=== PATIENT | male | born 1975 | race Caucasian/White ===

== ENCOUNTER 2018-06-18 14:00 | Emergency (ER) | payer BC, MEDICAID ==
[2018-06-18] MEDS ORDERED: IOHEXOL 300mgI/mL 100 ML VIAL IVP ONE (14:19)
[2018-06-18 14:30] LABS: % BASOPHILS 0.2 % (0.0-2.0); % EOSINOPHILS 1.6 % (0.0-5.0); % LYMPHOCYTES 31.1 % (20.0-50.0); % MONOCYTES 5.1 % (2.0-10.0); EOSINOPHILE ABSOLUTE 0.1 Th/cmm (0.1-0.4); HEMOGLOBIN 14.6 gm/dL (12-16); LYMPHOCYTE ABSOLUTE 2.8 Th/cmm (1.5-3.0); MEAN CORPUSCULAR HGB CONC 34.1 pg (28.0-36.0); MEAN PLATELET VOLUME 7.8 fl; MONOCYTE ABSOLUTE 0.5 Th/cmm (0.3-1.0); NEUTROPHILE ABSOLUTE 5.5 Th/cmm (1.8-8.0); PLATELET COUNT 242 Th/cmm (150-400); RED BLOOD COUNT 4.88 Mil/cmm (4.30-5.70); WHITE BLOOD COUNT 8.9 Th/cmm (4.8-10.8)
--- NOTE | 2018-06-18 14:45 | ED Physician Chart ---
ED Chief Complaint/HPI - Patient Information Date Seen:: 06/18/18 Time Seen:: 14:10 Chief Complaint:: dizziness History of Present Illness:: 42 yr old male with 2 yr hx of off and on dizziness getting worse and progressive states today at home felt lt facial numbness hot feeling and was dizzy that he had to hold on to something they went to [facility] and [facility] bp taken 158/ 90 pt denies arm or leg or facial weakness no slurred speech no trouble swallowing .pt denies any medical problems Allergies:: Allergies Allergy/AdvReac Type Severity Reaction Status Date / Time No Known Allergies Allergy Verified 04/19/16 19:42 Vitals:: Vital Signs - 8 hr 06/18/18 14:11 Temp 98.0 F HR 72 RR 16 BP 150/62 O2 Sat % 98 ED Review of Systems - Review of Systems General/Constitutional: No fever Skin: No skin lesions Head: No headache Eyes: No loss of vision ENT: No earache Neck: No neck pain Cardio Vascular: No chest pain Pulmonary: No SOB GI: No nausea, No vomiting Musculoskeletal: No bone or joint pain Endocrine: No polyuria Psychiatric: No depression Hematopoietic: No bruising Allergic/Immuno: No urticaria Neurological: Dizziness ED Past Medical History - Past Medical History Past Medical History: No significant medical hx Family Medical History - Family Member Mother History Unknown: Yes Hx Family Coronary Artery Disease: Yes Hx Family Hypertension: Yes Other Medical History: family hx of diabetes ED Physical Exam - Physical Examination General/Constitutional: Well-developed, well-nourished, Alert, No distress Head: Atraumatic Eyes: Lids, conjuctiva normal Skin: Nl inspection ENMT: External ears, nose nl Neck: Nontender Respiratory: Nl effort/Exclusion Cardio Vascular: RRR GI: No tenderness/rebounding/guarding : No CVA tenderness Extremities: No tenderness or effusion, Full ROM Neuro/Psych: Alert/oriented Misc: Normal back ED Assessment - Assessment General Assessment: dizziness unclear etiology neg w/u in past with nl ct head neck ED Septic Shock - . Is Septic Shock (SBP<90, OR Lactate>4 mmol\L) present?: No - <6hrs of presentation: Vital Signs: Vital Signs - 8 hr 06/18/18 14:11 Temp 98.0 F HR 72 RR 16 BP 150/62 O2 Sat % 98 ED Reassessment (Disposition) - Reassessment Reassessment Condition:: Unchanged - Diagnosis Diagnosis:: dizziness unclear etiology - Patient Disposition Discharge/Transfer:: Home Condition at Disposition:: Stable
[2018-06-18 14:48] LABS: ALB/GLOB RATIO 1.4 (1.0-1.8); ALBUMIN 3.9 gm/dL (4.2-5.5); ALKALINE PHOSPHATASE 52 U/L (34-104); ANION GAP 10.1 (7.0-16.0); BILIRUBIN,TOTAL 0.5 mg/dL (0.3-1.0); BUN - UREA NITROGEN 14 mg/dL (7-25); CALCIUM SERUM 8.8 mg/dL (8.6-10.3); CARBON DIOXIDE 25.6 mEq/L (21.0-31.0); CHLORIDE 103 mEq/L (98-107); CREATININE - SERUM 0.9 mg/dL (0.7-1.3); GFR AFRICAN-AMERICAN > 60.0 ml/min (>90); GFR NON AFRICAN-AMERICAN > 60.0 ml/min; GLUCOSE 146 mg/dL (70-105); POTASSIUM SERUM 3.7 mEq/L (3.5-5.1); SGOT 18 U/L (13-39); SGPT/ALT 34 U/L (7-52); SODIUM SERUM 135 mEq/L (136-145); TOTAL PROTEIN,SERUM 6.6 gm/dL (6.0-8.3)
[2018-06-18] MEDS ORDERED: Sodium Chloride 0.9% 1,000 ML IV ONE (14:58)
[2018-06-18 17:25] LABS: URINE SOURCE CLEAN C
[2018-06-18 17:27] LABS: URINE BILIRUBIN NEGATIVE (NEGATIVE); URINE BLOOD NEGATIVE (NEGATIVE); URINE GLUCOSE (UA) NEGATIVE (NEGATIVE); URINE KETONE NEGATIVE (NEGATIVE); URINE LEUKOCYTE ESTERASE NEGATIVE (NEGATIVE); URINE NITRATE NEGATIVE (NEGATIVE); URINE PROTEIN NEGATIVE (NEGATIVE)
[2018-06-18 17:36] LABS: URINE CLARITY CLEAR (CLEAR); URINE COLOR YELLOW
[2018-06-18 17:40] LABS: URINE MICROSCOPIC INDICATED? YES
[2018-06-18 17:41] LABS: URINE BACTERIA OCCASIONAL /hpf (NONE SEEN); URINE EPITHELIAL CELLS MODERATE /lpf (FEW); URINE RBC 0-2 /hpf (0-5); URINE WBC 0-2 /hpf (0-5)
--- NOTE | 2018-06-19 07:30 | Diagnostic Imaging Report ---
Carotid ultrasound HISTORY: Dizziness COMPARISON: CT soft tissue neck the same day Technique: Longitudinal and transverse sonographic sector images of the carotid arteries were obtained with doppler analysis. FINDINGS: Exam of the right side demonstrates mild generalized atherosclerotic vascular disease. There is increased velocity on the right proximal ICA at 160 cm/second. There is also mild increased velocity right distal ICA 126 cm/second. Exam the left side demonstrates intimal thickening and mild atherosclerotic vascular disease. There is increased velocity of the left common carotid artery at 188 cm/second. Antegrade vertebral artery flow is demonstrated bilaterally. The velocity ratios are within normal limits. IMPRESSION: Mild bilateral atherosclerotic vascular disease. Increased velocities of the bilateral common carotid arteries are noted likely related to technical factors as no significant atherosclerosis is visualized on recent CT soft tissue neck exam. Otherwise no evidence of hemodynamically significant stenosis.
--- NOTE | 2018-06-19 07:58 | Diagnostic Imaging Report ---
CT scan of the brain without contrast History: Dizziness, vertigo Total DLP equals 777 CTDI equals 41.4 Axial sections were obtained from the base of the skull to the vertex. There is a normal ventricular system size. No focal parenchymal lesions are seen. No evidence of any mass effect or shift of midline structures. No extra-axial masses or abnormal fluid collections. An intraluminal round density seen within the right maxillary sinus. The findings may be associated with a mucosal polyp or cyst. Impression: 1. No acute focal intracerebral abnormalities 2. Intraluminal density within the right maxillary sinus that may be associated with a mucosal polyp or cyst
--- NOTE | 2018-06-19 08:00 | Diagnostic Imaging Report ---
CT scan soft tissues of the neck with intravenous contrast HISTORY: Pain Total DLP equals 578 CTDI equals 22.9 Following ministration of intravenous contrast, axial sections were obtained from the level of the orbits down to level below the thoracic inlet. There is preservation of normal fat planes throughout the neck. Several normal-sized lymph nodes are seen. No other abnormal masses. Preservation of normal margins about the major muscular bundles of the neck and about the major vascular landmarks. The parotid glands appear normal. No abnormality seen in the region of the submandibular glands. No abnormality seen in the region of the epiglottis, valleculae, or pyriform sinuses. No abnormality seen in the region of the vocal cords. Cervical trachea appears normal. IMPRESSION: Normal examination
--- NOTE | 2018-06-19 09:53 | Cardiology ---
06/18/[address] Klaudia Dunbar. PROCEDURE: Echocardiogram. M-MODE ECHOCARDIOGRAM: Mitral valve, anterior leaflet of mitral valve shows normal excursion, EF velocity. Posterior leaflet of mitral valve shows normal excursion. Left ventricular posterior wall showed normal thickness, excursion. Interventricular septum showed normal thickness, excursion. Ejection fraction 76%. Left atrium normal. Aortic root shows normal dimension, normal excursion of aortic leaflets. CONCLUSION: Normal M-Mode echo, ejection fraction 76%. 2D ECHO: Long axis view show normal size left ventricle with normal wall motion, mitral valve shows normal excursion. Left atrium normal. Aortic root shows normal dimension, normal excursion of aortic leaflets. Short axis view of mitral valve normal. Short axis view of aortic valve normal. Apical four chamber view showed normal sized left ventricle, left atrium, right ventricle, right atrium, tricuspid and mitral valve. Ejection fraction 76%. CONCLUSION: Normal 2D echo, ejection fraction 76%. Doppler study shows trace mitral regurgitation, trace tricuspid regurgitation, right ventricular systolic pressure 20 mmHg. CONCLUSION: Trace mitral regurgitation, trace tricuspid regurgitation, ejection fraction 76%. JOB# [id number]
[2018-06-19 21:10] LABS: A1C % 6.2 % (4.0-6.0)
== END 2018-06-18 19:40 | disposition home or self-care (01) ==
LOC: ER 14:00
DX: R42 Dizziness and giddiness (principal); R73.09 Other abnormal glucose; R20.0 Anesthesia of skin
CPT/HCPCS: 36415-UA; 70470-TC; 70491-TC; 80053-TC; 81001-TC; 83036-90; 84484-TC; 85025-TC; 93005; 93880-TC; Q9967